=== PATIENT | male | born 1975 | race Caucasian/White ===

== ENCOUNTER 2018-02-09 21:51 | Emergency (ER) | payer OTHER ==
[~2018-02-09] VITALS: Ht 175.3 cm; Wt 129.1 kg
[~2018-02-09 21:51] MED LIST: ADVAIR 250/501 DISK IH; DOXYCYCLINE HY100 MG PO; LOSARTAN-HCTZ1 EAC2 PO; ROXICODONE5 MG PO; TERBINAFINE HC250 MG PO; TRAMADOL HCL50 MG PO; ZOLPIDEM TARTRA10 MG PO
[2018-02-09 22:35] LABS: HEMATOCRIT 46.2 % (38.0-50.0); HEMOGLOBIN 15.7 G/DL (12.5-16.6); MCH 30.1 PG (29.0-34.0); MCV 88.5 FL (86-99); PLATELET COUNT 254 K/uL (156-360); RBC DIS.WIDTH-CV 12.7 % (11.8-14.6); RBC DIS.WIDTH-SD 41.2 % (39-53); RED BLOOD COUNT 5.22 M/uL (4.00-5.50); WHITE BLOOD COUNT 14.3 K/uL (4.1-10.2)
[2018-02-09 22:49] LABS: CHLORIDE 104 mEq/L (99-109); POTASSIUM 3.6 mEq/L (3.7-5.4); SODIUM 139 mEq/L (136-147)
[2018-02-09 22:51] LABS: GLUCOSE 108 mg/dL (70-99)
[2018-02-09 22:55] LABS: CREATININE 0.9 mg/dL (0.6-1.3); GFR ESTIMATE (CALCULATED) > 59 mL/min/ (58.99-99999)
[2018-02-09 22:56] LABS: UREA NITROGEN (BUN) 15 mg/dL (9-23)
[2018-02-09 23:26] LABS: APPEARANCE CLEAR ((CLEAR)); BILIRUBIN NEGATIVE; BLOOD MODERATE; COLOR STRAW ((YELLOW)); GLUCOSE (STRIP) NEGATIVE; KETONES NEGATIVE; LEUKOCYTES NEGATIVE; NITRITE NEGATIVE; PROTEIN (STRIP) NEGATIVE; SPECIFIC GRAVITY 1.006 (1.000-1.030); UROBILINOGEN 0.2 MG/DL (0.2-1.0)
[2018-02-09 23:40] LABS: BACTERIA NONE SEEN /HPF; EPITHELIAL CELLS NONE SEEN /HPF; MUCUS TRACE /LPF; RED BLOOD CELLS 0-5 /HPF (0-5); UCUL ADDED? NO; WHITE BLOOD CELLS 0-5 /HPF (0-5)
[2018-02-10] MEDS ORDERED: IBUPROFEN600 MG PO (01:13)
[2018-02-10] MEDS ORDERED: PERCOCET 5/31 TABLET PO (01:13)
[2018-02-10] MEDS ORDERED: FLOMAX0.4 MG PO (01:13)
[2018-02-10 01:34] VITALS: BP 164/100
== END 2018-02-10 01:35 | disposition home or self-care (01) ==
LOC: EME 21:51
DX: N23 Unspecified renal colic (principal); I10 Essential (primary) hypertension; Z87.442 Personal history of urinary calculi; F17.200 Nicotine dependence, unspecified, uncomplicated; Z88.6 Allergy status to analgesic agent
CPT/HCPCS: 80048; 81003; 85027; 99281; 99284; J1885; J2270

== ENCOUNTER 2018-02-27 11:22 | Emergency (ER) | payer OTHER ==
[~2018-02-27] VITALS: Ht 175.3 cm; Wt 130.0 kg
[~2018-02-27 11:22] MED LIST changes: +FLOMAX0.4 MG PO; +IBUPROFEN600 MG PO; +PERCOCET 5/31 TABLET PO
[2018-02-27 12:08] LABS: HEMATOCRIT 45.6 % (38.0-50.0); HEMOGLOBIN 15.9 G/DL (12.5-16.6); MCHC 34.9 G/DL (30.0-36.0); PLATELET COUNT 272 K/uL (156-360); RBC DIS.WIDTH-CV 12.7 % (11.8-14.6); RBC DIS.WIDTH-SD 39.9 % (39-53); WHITE BLOOD COUNT 21.7 K/uL (4.1-10.2)
[2018-02-27 12:19] LABS: CHLORIDE 105 mEq/L (99-109); POTASSIUM 3.9 mEq/L (3.7-5.4); SODIUM 138 mEq/L (136-147)
[2018-02-27 12:21] LABS: GLUCOSE 127 mg/dL (70-99)
[2018-02-27 12:25] LABS: CREATININE 1.2 mg/dL (0.6-1.3); GFR ESTIMATE (CALCULATED) > 59 mL/min/ (58.99-99999)
[2018-02-27 12:26] LABS: UREA NITROGEN (BUN) 20 mg/dL (9-23)
[2018-02-27 12:41] LABS: APPEARANCE CLEAR ((CLEAR)); BILIRUBIN NEGATIVE; BLOOD SMALL; COLOR YELLOW ((YELLOW)); GLUCOSE (STRIP) NEGATIVE; KETONES NEGATIVE; LEUKOCYTES NEGATIVE; NITRITE NEGATIVE; PROTEIN (STRIP) NEGATIVE; SPECIFIC GRAVITY 1.016 (1.000-1.030); UROBILINOGEN 0.2 MG/DL (0.2-1.0)
[2018-02-27 12:52] LABS: BACTERIA NONE SEEN /HPF; EPITHELIAL CELLS NONE SEEN /HPF; MUCUS TRACE /LPF; RED BLOOD CELLS 0-5 /HPF (0-5); UCUL ADDED? NO; WHITE BLOOD CELLS 0-5 /HPF (0-5)
[2018-02-27] MEDS ORDERED: ZOFRAN ODT4 MG PO (13:40)
[2018-02-27] MEDS ORDERED: PERCOCET 5/31 TABLET PO (13:40)
[2018-02-27] MEDS ORDERED: FLOMAX0.4 MG PO (13:40)
[2018-02-27 13:55] VITALS: BP 171/118
== END 2018-02-27 13:56 | disposition home or self-care (01) ==
LOC: EME 11:22 → EXP 11:22
DX: N13.2 Hydronephrosis with renal and ureteral calculous obstruction (principal); K40.90 Unilateral inguinal hernia, without obstruction or gangrene, not specified as recurrent; Z90.49 Acquired absence of other specified parts of digestive tract; Z87.442 Personal history of urinary calculi; F17.200 Nicotine dependence, unspecified, uncomplicated
CPT/HCPCS: 74176; 80048; 81003; 85027; 99281; 99284; J1885; J2405; J3010; J7030